=== PATIENT | male | born 1960 | race Caucasian/White ===

== ENCOUNTER 2017-03-18 00:03 | Inpatient (IN) | payer OTHER, MEDICARE ==
[~2017-03-18] VITALS: Ht 165.1 cm; Wt 85.1 kg
[~2017-03-18 00:03] MED LIST: ACET325 PO; ALBU0.086 INH; BACL10TA PO; HYOS0.1251 SL; IPRA0.02 INH; LACT PO/GT; LEXA10TA PO/GT; MAGN400T PO; METO10TA PO/GT; METO50TA PO/GT; NORV2.5T11 PO/GT; POTA-243 PO/GT; PREV30CA36 PO/GT; Z.0.NO CURRENT MEDS; [UNRECOGNIZED DRUG - CODE] PO/GT
[2017-03-18 00:12] VITALS: BP 150/80; PULSE 100; RESP 16; TEMP 97.9; O2SAT 98
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
[2017-03-18] MEDS ORDERED: MORPHINE SULFATE 4 MG/ML INJ IV PUSH ONE (01:15)
[2017-03-18] MEDS ORDERED: CLINDAMYCIN INJ 900 MG in SODIUM CHLORIDE 0.9% INJ 100 ML IV ONE (01:15)
[2017-03-18] MEDS ORDERED: SODIUM CHLORIDE 0.9% FLUSH 10 ML FLUSH IVF PRN (01:15)
[2017-03-18] MEDS ORDERED: ONDANSETRON HCL 4 MG/2 ML VIAL IV PUSH ONE (01:15)
[2017-03-18] MEDS ORDERED: TETANUS/DIPHTHERIA TOXOID ADULT 0.5 ML VIAL IM ONE (01:15)
[2017-03-18 02:44] LABS: AUTOMATED NEUTROPHIL # 10.1 TH/MM3 (1.8-7.7); BASOPHIL % 0.4 % (0.0-2.0); EOSINOPHIL # 0.2 TH/MM3 (0-0.4); EOSINOPHIL % 1.4 % (0.0-4.0); HEMO FLAGS DIFF FINAL; LYMPHOCYTE # 1.3 TH/MM3 (1.0-4.8); MEAN CELL VOLUME 105.4 FL (80.0-100.0); MEAN CORPUSCULAR HEMOGLOBIN 37.1 PG (27.0-34.0); MEAN CORPUSCULAR HGB CONC 35.2 % (32.0-36.0); MONO % 11.7 % (0.0-8.0); NEUT % 76.5 % (16.0-70.0); PLATELET COUNT 302 TH/MM3 (150-450); RED BLOOD COUNT 3.23 MIL/MM3 (4.50-5.90); RED CELL DISTRIBUTION WIDTH 12.2 % (11.6-17.2); WHITE BLOOD COUNT 13.2 TH/MM3 (4.0-11.0)
[2017-03-18 02:58] LABS: BICARBONATE 24.4 MEQ/L (21.0-32.0); POTASSIUM 3.7 MEQ/L (3.5-5.1)
[2017-03-18] MEDS ORDERED: SODIUM CHLOR 0.9% 1000 ML INJ 1,000 ML IV ONE (03:30)
[2017-03-18] MEDS ORDERED: ACETAMINOPHEN 325 MG TAB PO PRN (04:15)
[2017-03-18] MEDS ORDERED: ONDANSETRON HCL 4 MG/2 ML VIAL IV PUSH PRN (04:30)
[2017-03-18] MEDS ORDERED: MORPHINE SULFATE 4 MG/ML INJ IV PRN (04:30)
[2017-03-18] MEDS: CLINDAMYCIN 600 MG/NS 100 ML IV SCH ×2 (10:38)
[2017-03-18] MEDS: HEPARIN SODIUM - SQ 10,000 UNITS/ML VIAL SQ SCH ×2 (10:39→22:54)
[2017-03-18 10:43] VITALS: BP 109/80; PULSE 87; RESP 16; O2SAT 99
[2017-03-18 12:00] VITALS: BP 137/69; PULSE 84; RESP 18; TEMP 96.9; O2SAT 99
[2017-03-18] MEDS: SODIUM CHLOR 0.9% 1000 ML INJ 1,000 ML IV SCH (13:46)
[2017-03-18 16:00] VITALS: BP 135/79; PULSE 85; RESP 18; TEMP 96.6; O2SAT 99
[2017-03-18 20:00] VITALS: BP 135/93; PULSE 99; RESP 20; TEMP 97.5; O2SAT 95
[2017-03-19] VITALS: BP 120/58; PULSE 89; RESP 20; TEMP 97.3; O2SAT 95
[2017-03-19] MEDS: CLINDAMYCIN 600 MG/NS 100 ML IV SCH ×4 (02:17→08:50)
[2017-03-19 04:00] VITALS: BP 113/60; PULSE 80; RESP 18; TEMP 96.7; O2SAT 97
[2017-03-19 06:58] LABS: HEMATOCRIT 31.6 % (39.0-51.0); MEAN CELL VOLUME 106.3 FL (80.0-100.0); MEAN CORPUSCULAR HGB CONC 35.7 % (32.0-36.0); PLATELET COUNT 268 TH/MM3 (150-450); RED BLOOD COUNT 2.97 MIL/MM3 (4.50-5.90); RED CELL DISTRIBUTION WIDTH 12.2 % (11.6-17.2); REVIEW FLAG FINAL; WHITE BLOOD COUNT 6.4 TH/MM3 (4.0-11.0)
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
[2017-03-19 07:41] LABS: BICARBONATE 26.1 MEQ/L (21.0-32.0); POTASSIUM 3.2 MEQ/L (3.5-5.1)
[2017-03-19 08:00] VITALS: BP 115/75; PULSE 82; RESP 18; TEMP 97.2; O2SAT 96
[2017-03-19] MEDS: HEPARIN SODIUM - SQ 10,000 UNITS/ML VIAL SQ SCH ×2 (08:50→21:48)
[2017-03-19] MEDS: SODIUM CHLOR 0.9% 1000 ML INJ 1,000 ML IV SCH ×2 (08:51→21:50)
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
[2017-03-19] MEDS ORDERED: POTASSIUM CHLORIDE 10 MEQ CONTROLLED RELEASE TAB PO ONE (10:30)
[2017-03-19 12:00] VITALS: BP 135/74; PULSE 93; RESP 20; TEMP 97.2; O2SAT 99
--- NOTE | 2017-03-19 12:23 | PD.WCN.NOT ---
Wound Consult Description: Received consult from Doctor Greta for bilateral feet wound management Communicated with: KANDICE Gant richmond and Priti Kendall [facility] Recommendation: Please cleanse wound to R dorsal foot with normal saline or wound cleanser and apply single layer Xeroform just over wound bed and cover with dry 4x4 gauze pads Secure dressing with rolled gauze and tape. Change dressing very other day or PRN Additional Information: Patient seen on for evaluation of wound management for feet. Assessed R dorsal foot with deflated partially unroofed blister. Entire blister measures 5 cm x 3.5cm. Unroofed area measures 2 cm x 1 cm x ~<0.1 cm with 100% pink tissue to wound bed and no active drainage. Cleansed wound with normal saline. Periwound is noted with some erythema and entire R foot presents with trace pitting edema. L foot and L leg present with pitting edema that is worse than R leg. LLE is noted with intact skin with some erythema to L foot. Applied Xerform in single layer just over wound bed before covering with dry 4 x4 gauze. Secured with rolled gauze and tape. Dry 4x4 gauze applied in weaving fashion to separate toes on R foot. Paty Barahona [facility] Mar 19, 2017 12:23
[2017-03-19] MEDS ORDERED: cefTRIAXone INJ 2,000 MG in SODIUM CHLORIDE 0.9% INJ 100 ML IV SCH (14:00)
--- NOTE | 2017-03-19 15:18 | ECHRPT ---
Indication: CONCLUSIONS The left ventricular systolic function is hyperdynamic with an estimated ejection fraction in the ra nge of 65- 70%. Wall thickness is normal. Normal left ventricular size. Trace mitral valve regurgitation. Structurally normal tricuspid valve. Trace tricuspid valve regurgitation. BP: / HR: Rhythm: Sinus MEASUREMENTS (Male / Female) Normal Values Technical Quality:Good 2D ECHO LV Diastolic Diameter PLAX 4.3 cm 4.2 - 5.9 / 3.9 - 5.3 cm LV Systolic Diameter PLAX 3.4 cm IVS Diastolic Thickness 0.9 cm 0.6 - 1.0 / 0.6 - 0.9 cm LVPW Diastolic Thickness 0.7 cm 0.6 - 1.0 / 0.6 - 0.9 cm LV Relative Wall Thickness 0.4 RV Internal Dim ED PLAX 2.0 cm LA Systolic Diameter LX 3.2 cm 3.0 - 4.0 / 2.7 - 3.8 cm M-MODE Aortic Root Diameter MM 3.3 cm AV Cusp Separation MM 2.2 cm DOPPLER Mitral E Point Velocity 71.3 cm/s Mitral A Point Velocity 81.2 cm/s Mitral E to A Ratio 0.9 TR Peak Velocity 212.0 cm/s TR Peak Gradient 18.0 mmHg FINDINGS LEFT VENTRICLE The left ventricular systolic function is hyperdynamic with an estimated ejection fraction in the ra nge of 65- 70%. Wall thickness is normal. Normal left ventricular size. RIGHT VENTRICLE Normal right ventricular size and systolic function. LEFT ATRIUM The left atrial size is normal. RIGHT ATRIUM The right atrial size is normal. ATRIAL SEPTUM Normal atrial septal thickness without atrial level shunting by limited color doppler interrogation. AORTA The aortic root and proximal ascending aorta are normal in size on limited imaging. MITRAL VALVE Trace mitral valve regurgitation. AORTIC VALVE Trileaflet aortic valve. No aortic valve stenosis or regurgitation. TRICUSPID VALVE Structurally normal tricuspid valve. Trace tricuspid valve regurgitation. PULMONARY VALVE The pulmonary valve is not well visualized. VESSELS The inferior vena cava is normal in size. PERICARDIUM No pericardial effusion. Bhupendra Govea MD (Electronically Signed) Final Date:19 March 2017 15:17
[2017-03-19] MEDS ORDERED: Vancomycin Consult Pharmacy 1 EA OTHER SCH (15:30)
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
[2017-03-19 16:00] VITALS: BP 133/63; PULSE 87; RESP 16; TEMP 97.7; O2SAT 97
[2017-03-19] MEDS ORDERED: VANCOMYCIN INJ 1,250 MG in SODIUM CHLOR 0.9% 250 ML INJ 250 ML IV ONE (16:15)
[2017-03-19 20:00] VITALS: BP 132/66; PULSE 86; RESP 18; TEMP 97.6; O2SAT 97
[2017-03-20] VITALS: BP 122/70; PULSE 93; RESP 20; TEMP 97.2; O2SAT 97
[2017-03-20] MEDS: VANCOMYCIN INJ 1,250 MG in SODIUM CHLOR 0.9% 250 ML INJ 250 ML IV SCH ×2 (03:57→16:41)
[2017-03-20 08:00] VITALS: BP 156/83; PULSE 85; RESP 20; TEMP 97.5; O2SAT 95
[2017-03-20 08:37] LABS: BICARBONATE 25.7 MEQ/L (21.0-32.0); POTASSIUM 3.7 MEQ/L (3.5-5.1)
[2017-03-20] MEDS: HEPARIN SODIUM - SQ 10,000 UNITS/ML VIAL SQ SCH ×2 (09:15→21:44)
[2017-03-20 12:00] VITALS: BP 163/75; PULSE 88; RESP 18; TEMP 98; O2SAT 96
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
[2017-03-20] MEDS ORDERED: oxyCODONE/ACETAMINOPHEN 7.5 MG/325 MG TAB PO PRN (14:45)
[2017-03-20] MEDS ORDERED: cloNIDine HCL 0.1 MG TAB PO PRN (15:00)
[2017-03-20] MEDS: SODIUM CHLOR 0.9% 1000 ML INJ 1,000 ML IV SCH (15:40)
[2017-03-20 16:00] VITALS: BP 155/80; PULSE 91; RESP 20; TEMP 97.9; O2SAT 94
[2017-03-20 20:00] VITALS: BP 146/80; PULSE 88; RESP 18; TEMP 98.4; O2SAT 95
[2017-03-21] VITALS: BP 162/79; PULSE 85; RESP 18; TEMP 98.2; O2SAT 95
[2017-03-21] MEDS: VANCOMYCIN INJ 1,250 MG in SODIUM CHLOR 0.9% 250 ML INJ 250 ML IV SCH (05:00)
[2017-03-21 08:00] VITALS: BP 164/91; PULSE 89; RESP 18; TEMP 96.3; O2SAT 94
[2017-03-21] MEDS: HEPARIN SODIUM - SQ 10,000 UNITS/ML VIAL SQ SCH (09:34)
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
[2017-03-21] MEDS ORDERED: OXYC1TAB35 PO (10:32)
[2017-03-21] MEDS ORDERED: CEPH-460 PO (10:32)
[2017-03-21] MEDS ORDERED: CLON.1 PO (10:32)
[2017-03-21] MEDS ORDERED: AMLO5 PO (10:34)
[2017-03-21 12:00] VITALS: BP 180/97; PULSE 90; RESP 18; TEMP 97.8; O2SAT 96
[2017-03-21] MEDS ORDERED: CEPHALEXIN MONOHYDRATE 500 MG CAP PO SCH (13:15)
[2017-03-21 16:00] VITALS: BP 143/73; PULSE 83; RESP 18; TEMP 96.7; O2SAT 98
[2017-03-22] MEDS ORDERED: PHARMACY ORDERED LAB ONE (04:45)
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
== END 2017-03-21 17:29 | DRG 872 ==
LOC: NEPC 00:03 → NEDA 03:52 → NEDH 07:21 → N07A 13:45
PROVIDERS: ADMIT Specialist; ATTEND Specialist
DX: A41.9 Sepsis, unspecified organism (principal); N17.9 Acute kidney failure, unspecified; D69.6 Thrombocytopenia, unspecified; E87.1 Hypo-osmolality and hyponatremia; R56.9 Unspecified convulsions; L03.115 Cellulitis of right lower limb; L03.116 Cellulitis of left lower limb; E86.0 Dehydration; D64.9 Anemia, unspecified; I10 Essential (primary) hypertension; E87.6 Hypokalemia; F10.20 Alcohol dependence, uncomplicated; Z87.820 Personal history of traumatic brain injury; B95.8 Unspecified staphylococcus as the cause of diseases classified elsewhere
CPT/HCPCS: 76937; 80048; 83930; 83935; 85025; 85027; 86403; 87040; 87077; 87186; 87205; 90471; 90714; 93306; 96365; 96375; J0696; J1644; J2270; J2405; J3370; J7030; J7050

== ENCOUNTER 2017-03-31 09:16 | Emergency (ER) | payer MEDICARE, OTHER ==
[~2017-03-31] VITALS: Ht 165.1 cm; Wt 85.0 kg
[~2017-03-31 09:16] MED LIST changes: -ACET325 PO; -ALBU0.086 INH; +AMLO5 PO; -BACL10TA PO; +CEPH-460 PO; +CLON.1 PO; -HYOS0.1251 SL; -IPRA0.02 INH; -LACT PO/GT; -LEXA10TA PO/GT; -MAGN400T PO; -METO10TA PO/GT; -METO50TA PO/GT; -NORV2.5T11 PO/GT; +OXYC1TAB35 PO; -POTA-243 PO/GT; -PREV30CA36 PO/GT; -Z.0.NO CURRENT MEDS; -[UNRECOGNIZED DRUG - CODE] PO/GT
[2017-03-31 09:33] VITALS: BP 144/86; PULSE 99; RESP 16; TEMP 98.2; O2SAT 92
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
== END 2017-03-31 20:14 | disposition home or self-care (01) ==
LOC: NEPD 09:16 → NEDAMB 20:14
DX: F10.129 Alcohol abuse with intoxication, unspecified (principal); I10 Essential (primary) hypertension
CPT/HCPCS: 99283